=== PATIENT | female | born 1990 | race African-American/Black ===

== ENCOUNTER 2017-02-15 02:15 | Emergency (ER) | payer BC ==
[~2017-02-15] VITALS: Ht 170.2 cm; Wt 65.0 kg
[2017-02-15 02:18] VITALS: BP 140/71; PULSE 87; RESP 16; TEMP 97.5; O2SAT 98
[2017-02-15] MEDS ORDERED: SODIUM CHLOR 0.9% 1000 ML INJ 1,000 ML IV SCH (02:33)
[2017-02-15 02:38] VITALS: BP 117/68; PULSE 88; RESP 16; TEMP 98.8; O2SAT 98
[2017-02-15 02:45] LABS: AUTOMATED NEUTROPHIL # 7.6 TH/MM3 (1.8-7.7); BASOPHIL % 0.2 % (0.0-2.0); EOSINOPHIL # 0.1 TH/MM3 (0-0.4); EOSINOPHIL % 0.6 % (0.0-4.0); HEMO FLAGS DIFF FINAL; LYMPH % 6.7 % (9.0-44.0); LYMPHOCYTE # 0.6 TH/MM3 (1.0-4.8); MEAN CELL VOLUME 83.4 FL (80.0-100.0); MEAN CORPUSCULAR HEMOGLOBIN 29.1 PG (27.0-34.0); MEAN CORPUSCULAR HGB CONC 34.9 % (32.0-36.0); MONO % 7.6 % (0.0-8.0); NEUT % 84.9 % (16.0-70.0); PLATELET COUNT 290 TH/MM3 (150-450); RED BLOOD COUNT 4.56 MIL/MM3 (4.00-5.30); RED CELL DISTRIBUTION WIDTH 13.2 % (11.6-17.2)
[2017-02-15] MEDS ORDERED: KETOROLAC TROMETHAMINE 30 MG/ML (IVP) VIAL IVP ONE (02:45)
[2017-02-15] MEDS ORDERED: SODIUM CHLORIDE 0.9% FLUSH 10 ML FLUSH IV FLUSH PRN (02:45)
[2017-02-15] MEDS ORDERED: ONDANSETRON HCL 4 MG/2 ML VIAL IVP ONE (02:45)
[2017-02-15 03:00] LABS: ALT (GPT) 20 U/L (10-53); ANION GAP 6 MEQ/L (5-15); AST (GOT) 19 U/L (15-37); BICARBONATE 28.7 MEQ/L (21.0-32.0); BLOOD UREA NITROGEN 11 MG/DL (7-18); CHLORIDE 104 MEQ/L (98-107); GLOMERULAR FILTRATION RATE 109 ML/MIN (>89); POTASSIUM 3.3 MEQ/L (3.5-5.1); SODIUM (NA) 139 MEQ/L (136-145)
[2017-02-15 03:02] LABS: ALKALINE PHOSPHATASE 53 U/L (45-117); TOTAL BILIRUBIN ADULT 0.6 MG/DL (0.2-1.0)
[2017-02-15] MEDS ORDERED: PROM25TA5 PO (03:09)
[2017-02-15] MEDS ORDERED: IMOD2TAB3 PO (03:09)
--- NOTE | 2017-02-15 03:09 | PD ---
HPI Chief Complaint: GI Complaint Time Seen by Provider: 02:20 Travel History International Travel<30 days: No Contact w/Intl Traveler<30days: No Traveled to known affect area: No History of Present Illness HPI 26-year-old female here with complaint of nausea vomiting diarrhea and abdominal pain. Starting yesterday evening patient began to have an epigastric abdominal discomfort, somewhat burning in nature. Associated nausea, emesis 5 to tens. No hematemesis. Associated diarrhea, 3-4 times of small loose stools. No hematochezia. Patient denies any recent travel, raw or undercooked food, me, seafood, etc. PFSH Past Medical History Medical History: Denies Significant Hx Diminished Hearing: No Tetanus Vaccination: Unknown ?: Not LMP: 02/01/17 Ovarian Cysts: Yes Dilation and Curettage (D&C): Yes Past Surgical History Appendectomy: Yes Cholecystectomy: Yes Gynecologic Surgery: Yes (ovarian cyst removal) Social History Alcohol Use: No Tobacco Use: No Substance Use: No Allergies-Medications (Allergen,Severity, Reaction): Coded Allergies: No Known Allergies (Unverified , 02/15/17) Reported Meds & Prescriptions Reported Meds & Active Scripts Active Imodium A-D (Loperamide HCl) 2 Mg Tab 4 Mg PO DIRECTED PRN One tablet after each loose stool. Not to exceed 8 tablets per day. Phenergan (Promethazine HCl) 25 Mg Tab 25 Mg PO Q6H PRN Review of Systems Except as stated in HPI: all other systems reviewed are Neg Physical Exam Narrative GENERAL: Well-appearing female in no acute distress SKIN: Focused skin assessment warm/dry. HEAD: Normocephalic. EYES: No scleral icterus. No injection or drainage. ENT: Mucous membranes pink and moist. NECK: Supple CARDIOVASCULAR: Regular rate and rhythm. RESPIRATORY: No accessory muscle use. GASTROINTESTINAL: Abdomen soft, minimal to no reproducible epigastric abdominal pain without rebound or guarding MUSCULOSKELETAL: Normal gait NEUROLOGICAL: Awake and alert. Normal speech. PSYCHIATRIC: Appropriate mood and affect; insight and judgment normal. Data Data Last Documented VS Vital Signs Date Time Temp Pulse Resp B/P Pulse Ox O2 Delivery O2 Flow Rate FiO2 02/15/17 02:38 16 98 Room Air 02/15/17 02:38 98.8 88 117/68 Orders Ed Urine Pregnancytest Poc (02/15/17 02:21) Complete Blood Count With Diff (02/15/17 02:33) Comprehensive Metabolic Panel (02/15/17 02:33) Lipase (02/15/17 02:33) Iv Access Insert/Monitor (02/15/17 02:33) Ecg Monitoring (02/15/17 02:33) Oximetry (02/15/17 02:33) Ondansetron Inj (Zofran Inj) (02/15/17 02:45) Sodium Chlor 0.9% 1000 Ml Inj (Ns 1000 M (02/15/17 02:33) Sodium Chloride 0.9% Flush (Ns Flush) (02/15/17 02:45) Ketorolac Inj (Toradol Inj) (02/15/17 02:45) Potassium Chloride (Kcl) (02/15/17 03:15) Labs Laboratory Tests Test 02/15/17 02:35 White Blood Count 9.0 TH/MM3 Red Blood Count 4.56 MIL/MM3 Hemoglobin 13.3 GM/DL Hematocrit 38.0 % Mean Corpuscular Volume 83.4 FL Mean Corpuscular Hemoglobin 29.1 PG Mean Corpuscular Hemoglobin 34.9 % Concent Red Cell Distribution Width 13.2 % Platelet Count 290 TH/MM3 Mean Platelet Volume 8.9 FL Neutrophils (%) (Auto) 84.9 % Lymphocytes (%) (Auto) 6.7 % Monocytes (%) (Auto) 7.6 % Eosinophils (%) (Auto) 0.6 % Basophils (%) (Auto) 0.2 % Neutrophils # (Auto) 7.6 TH/MM3 Lymphocytes # (Auto) 0.6 TH/MM3 Monocytes # (Auto) 0.7 TH/MM3 Eosinophils # (Auto) 0.1 TH/MM3 Basophils # (Auto) 0.0 TH/MM3 CBC Comment DIFF FINAL Differential Comment Sodium Level 139 MEQ/L Potassium Level 3.3 MEQ/L Chloride Level 104 MEQ/L Carbon Dioxide Level 28.7 MEQ/L Anion Gap 6 MEQ/L Blood Urea Nitrogen 11 MG/DL Creatinine 0.78 MG/DL Estimat Glomerular Filtration 109 ML/MIN Rate Random Glucose 108 MG/DL Calcium Level 9.2 MG/DL Total Bilirubin 0.6 MG/DL Aspartate Amino Transf 19 U/L (AST/SGOT) Alanine Aminotransferase 20 U/L (ALT/SGPT) Alkaline Phosphatase 53 U/L Total Protein 7.7 GM/DL Albumin 4.0 GM/DL Lipase 84 U/L [facility] Medical Decision Making Medical Screen Exam Complete: Yes Emergency Medical Condition: Yes Medical Record Reviewed: Yes Differential Diagnosis 26-year-old female here with approximately 5-6 hours of epigastric abdominal discomfort, nausea vomiting diarrhea. Differential includes gastritis, pancreatitis, peptic ulcer, gastroenteritis, infectious diarrhea must likely hepatobiliary pathology. She is status post appendectomy and cholecystectomy. Narrative Course Patient placed on monitor, IV established and blood obtained. Given 1 L normal saline bolus, Zofran, Toradol. CBC, CMP, lipase, urine test obtained and notable for hypokalemia, replaced orally and able to tolerate oral challenge and discharged home. Diagnosis Primary Impression: Gastroenteritis Additional Impressions: Nausea vomiting and diarrhea Hypokalemia Referrals: [facility] call for appointment Additional Instructions: Nausea and diarrhea medications as needed. Med/Other Pt SpecificInfo: Prescription(s) given Scripts Loperamide (Imodium A-D)2 Mg Tab4 Mg PO DIRECTED PRN (DIARRHEA) #18 TAB Ref 0 One tablet after each loose stool. Not to exceed 8 tablets per day. Prov:Sari Cruz MD 02/15/17 Promethazine (Phenergan)25 Mg Tab25 Mg PO Q6H PRN (Nausea/Vomiting) #10 TAB Ref 0 Prov:Sari Cruz MD 02/15/17 Disposition: 01 DISCHARGE HOME Condition: Stable Sari Cruz MD February 15, 2017 03:09
[2017-02-15] MEDS ORDERED: POTASSIUM CHLORIDE 20 MEQ CONTROLLED RELEASE TAB PO ONE (03:15)
== END 2017-02-15 03:50 | disposition home or self-care (01) ==
LOC: NEPE 02:15
DX: K52.9 Noninfective gastroenteritis and colitis, unspecified (principal); R19.7 Diarrhea, unspecified; R11.2 Nausea with vomiting, unspecified; E87.6 Hypokalemia
CPT/HCPCS: 80053; 83690; 84703; 85025; 96374; 96375; 99284; J1885; J2405; J7030